=== PATIENT | female | born 1965 | race Caucasian/White ===

== ENCOUNTER 2016-05-03 15:06 | Observation (INO) | payer OTHER ==
[~2016-05-03] VITALS: Ht 167.6 cm; Wt 54.0 kg
--- NOTE | 2016-05-03 16:09 | DIAGNOSTIC IMAGING REPORT ---
PROCEDURE: CT HEAD WITHOUT CONTRAST INDICATION: HEADACHE ONE WEEK AGO ALTERED TECHNIQUE: Axial CT images were acquired through the head. Coronal and sagittal reformations were created. COMPARISON: None. FINDINGS: 2-3 small subacute infarcts are noted in the internal capsules bilaterally. On the left there is a 7-8 mm subacute infarct just under the sylvian fissure. These look like small-vessel lenticulostriate infarcts and may indicate small- vessel ischemic disease and/or vasculitis. No intracranial hemorrhage or extraaxial fluid collections. Ventricles are normal in size, shape and position. There is no mass, mass effect or midline shift. The taylor-white matter differentiation is normal. There is no edema. The calvarium is intact. The paranasal sinuses and mastoid air cells are normally aerated. The extracranial soft tissues and orbits are normal. IMPRESSION: 1. Multiple small deep white matter subacute infarcts suggesting small-vessel lenticulostriate ischemic disease and/or vasculitis. 2. Findings discussed with Dr Whitehead at 04:[address] scans at this facility use dose modulation, iterative reconstruction, and/or weight-based dosing when appropriate to reduce radiation dose to as low as reasonably achievable.
--- NOTE | 2016-05-03 16:10 | DIAGNOSTIC IMAGING REPORT ---
PROCEDURE: XR CHEST 2 VIEW INDICATION: ALTERED MENTAL STATUS WITH COUGH A FEW WEEKS AGO TECHNIQUE: PA and lateral views. COMPARISON: None. FINDINGS: Lungs are clear. Heart and mediastinum are normal. Thorax is normal. Elevated left hemidiaphragm. IMPRESSION: 1. Negative chest.
--- NOTE | 2016-05-03 17:51 | ED ORDER SUMMARY ---
..... Patient: JAMARI OVIEDO OrderSheet [facility] VisitID: [id number] [place] [address] 50y, F Registration Date/Time: 05/03/2016 ORDER SHEET Weight: 54.4 kg (stated) Allergies: No Known Drug Allergy GENERAL ORDERS: Chest 2V Urgent (15:33 05/03/2016 Ori Raymond) (Ack 15:41 KLAUSoerner) (15:45 EHassan R.N.) CT Head wo Cont Urgent (15:36 05/03/2016 Ori Raymond) (Ack 15:41 KLAUSoegosianer) (15:45 EHassan R.N.) CBC w Diff Urgent (15:36 05/03/2016 Ori Raymond) (Ack 15:41 KLAUSoeyemi) (15:45 EHassan R.N.) CMP Urgent (15:36 05/03/2016 Ori Raymond) (Ack 15:41 KLAUSoerner) (15:45 EHassan R.N.) UA-Culture if indicated Urgent (15:36 05/03/2016 Ori Raymond) (Ack 15:41 KLAUSoerner) (15:45 EHassan R.N.) Urine Drug Screen Urgent (15:36 05/03/2016 Ori aRymond) (Ack 15:41 KLAUSoerner) (15:45 EHassamitul R.N.) TSH Urgent (15:36 05/03/2016 Ori Raymond) (Ack 15:41 KLAUSoerner) (15:45 EHassan R.N.) Ethyl Alcohol Urgent (15:36 05/03/2016 Ori Raymond) (Ack 15:41 Shalini) (15:45 EHassamitul R.N.) Pulse oximeter (15:36 05/03/2016 Ori Raymond) (Ack 15:41 Flaquitarner) (15:45 EHassan R.N.) MEDICATION ORDERS: IV FLUIDS: IV NS : initial bolus 1000 mL (1000 mL/hr), then none - for X1 (NOW) (15:34 05/03/2016Princess Rehman Dr.) (15:55 Willian Hurley) ORDER SHEET NOTES: [Electronically signed by Ruby Gold R.N. (19:53 05/03/2016)] [Electronically signed by Ramses Whitehead Dr. (10:20 05/04/2016)] [Electronically locked/signed by Ruby Gold R.N. (19:53 05/03/2016)]
--- NOTE | 2016-05-03 17:51 | ED CLINICAL REPORT ---
Clinical Report - Physicians/Mid Levels [facility] [address] [place] [address] 05/03/2016 15:11 Patient: JAMARI OVIEDO Time Seen: 1505. Arrived- By private vehicle. Historian- patient. HISTORY OF PRESENT ILLNESS Chief Complaint: CHANGED MENTAL STATUS. This started past 3 days and is still present (staying the same). It was abrupt in onset and has been constant but is not gone now. Patient was last known well (three days ago). The patient has "felt strange". (difficulty with word finding). No alcohol recently. No weakness, numbness or recent fall. No difficulty walking. Usually is alert and oriented X3 and usually has normal mobility. (hx of alcoholism. has been sober since November 2015). Similar symptoms previously: Once (possibly about 15 years ago. she describes being diagnosed with a "stroke"). Recent medical care: Not recently seen/assessed. REVIEW OF SYSTEMS No fever, chest pain, difficulty breathing, blurred vision or sore throat. All systems otherwise negative, except as recorded above. PAST HISTORY See nurses notes. Medications: Amphetamine Salt Combo (30mg) Oral. Ibuprofen Oral 800 mg, daily. ValACYclovir HCl Oral (Tablet 500 mg) 1 tablet. BusPIRone HCl Oral (Tablet 10 mg) 1 tablet, daily. Lisinopril Oral (Tablet 10 mg) 1 tablet, daily. ROPINIRole HCl Oral (Tablet 1 mg) 1 tablet, twice a day. ClonazePAM Oral (Tablet 0.5 mg) 1 tablet, 2x a day. Tramadol HCL Oral (Tablet 50 mg) 1 tablet, daily. SOCIAL HISTORY Never smoker. Alcohol use. Patient is a recovering alcoholic. No drug use. No recent travel. Is a local resident. ADDITIONAL NOTES The nursing notes have been reviewed. PHYSICAL EXAM Vital Signs: 05/03/2016 15:18 BP: 115/74. HR: 88. RR: 15. O2 saturation: 100%. Temp: 98.4 F. Pain level now: 0/10. Blood pressure normal. Oxygen saturation normal. Appearance: Alert. No acute distress. Head: Head atraumatic. Eyes: Pupils equal, round and reactive to light. ENT: Normal ENT inspection. Airway intact. Moist mucous membranes. Pharynx normal. Neck: Normal inspection. Neck supple. CVS: Normal heart rate and rhythm. Heart sounds normal. Pulses normal. Respiratory: No respiratory distress. Breath sounds normal. Abdomen: Soft and nontender. No organomegaly. Back: Normal inspection. Skin: Skin warm and dry. Normal skin color. No rash. Normal skin turgor. Extremities: No calf tenderness. No lower extremity edema. (hand with stigmata of RA with ulnar deviation of fingers). Neuro: Alert. Oriented X 3. Mood/affect normal. Speech normal. Cranial nerves normal (as tested). No cerebellar findings. No motor deficit. No sensory deficit. Normal gait. LABS, X-RAYS, AND EKG Chest X-ray: (PROCEDURE: XR CHEST 2 VIEW INDICATION: ALTERED MENTAL STATUS WITH COUGH A FEW WEEKS AGO TECHNIQUE: PA and lateral views. COMPARISON: None. FINDINGS: Lungs are clear. Heart and mediastinum are normal. Thorax is normal. Elevated left hemidiaphragm. IMPRESSION: 1. Negative chest.). Views: PA. The X-rays were independently viewed by me and interpreted by the radiologist. The X-rays were discussed with the radiologist (via pacs). CT Head: (PROCEDURE: CT HEAD WITHOUT CONTRAST INDICATION: HEADACHE ONE WEEK AGO ALTERED TECHNIQUE: Axial CT images were acquired through the head. Coronal and sagittal reformations were created. COMPARISON: None. FINDINGS: 2-3 small subacute infarcts are noted in the internal capsules bilaterally. On the left there is a 7-8 mm subacute infarct just under the sylvian fissure. These look like small-vessel lenticulostriate infarcts and may indicate small-vessel ischemic disease and/or vasculitis. No intracranial hemorrhage or extraaxial fluid collections. Ventricles are normal in size, shape and position. There is no mass, mass effect or midline shift. The taylor-white matter differentiation is normal. There is no edema. The calvarium is intact. The paranasal sinuses and mastoid air cells are normally aerated. The extracranial soft tissues and orbits are normal. IMPRESSION: 1. Multiple small deep white matter subacute infarcts suggesting small-vessel lenticulostriate ischemic disease and/or vasculitis.). The study was independently viewed by me and interpreted by the radiologist. The study was discussed with the radiologist (via phone and pacs). Laboratory Tests: UA-Culture if indicated: (DEANNA: 05/03/2016 15:30) ( MsgRcvd 05/03/2016 16:15) Final results Test Result Flag Units (Reference) URINE COLOR YELLOW URINE APPEARANCE CLEAR URINE GLUCOSE NEGATIVE (NEGATIVE) URINE BILIRUBIN NEGATIVE (NEGATIVE) URINE KETONE NEGATIVE (NEGATIVE) URINE SPECIFIC GRAVITY 1.025 (1.010-1.030) URINE PH 6.0 (5.0-8.0) URINE PROTEIN NEGATIVE (NEGATIVE) URINE UROBILINOGEN 0.2 EU/dL (0.2-1.0) URINE NITRITE NEGATIVE (NEGATIVE) URINE BLOOD NEGATIVE (NEGATIVE) URINE LEUK ESTERASE NEGATIVE (NEGATIVE) URINE RBC NONE SEEN rbc/hpf (0-1) URINE WBC 0-1 wbc/hpf (0-1) URINE EPITHELIAL CELLS 3-5 EPI/hpf (0-5) URINE BACTERIA TRACE (<1+) (NONE SEEN) URINE COMMENT CULT NOT INDICATED 1+ YEASTURINE CULTURES ARE SET-UP BASED ON THE FOLLOWING CRITERIA:POSITIVE NITRITEPOSITIVE LEUKOCYTE ESTERASEGREATER THAN 10 WHITE BLOOD CELLSMODERATE (2+) OR GREATER BACTERIA CBC w Diff: (DEANNA: 05/03/2016 15:30) ( MsgRcvd 05/03/2016 15:53) Final results Test Result Flag Units (Reference) WHITE BLOOD COUNT 4.7 K/uL (4.5-11.5) RED BLOOD COUNT 3.90 L M/uL (4.00-5.20) HEMOGLOBIN 12.8 gm/dL (12.0-16.0) HEMATOCRIT 37.9 % (36.0-46.0) MEAN CELL VOLUME 97 fL (80-100) MEAN CORPUSCULAR HGB 33 pg (26-34) MEAN CORPUSCULAR HGB CONC 34 g/dL (31-37) RED CELL DISTRIBUTION WIDTH 13.1 % (11.6-14.8) PLATELET COUNT 308 K/uL (150-400) NEUTROPHIL % 61.2 % (50-75) LYMPH % 24.1 L % (25-40) MONO % 12.2 % (3-14) EOSINOPHIL % 1.2 % (0-4) BASOPHIL % 1.3 % (0-2) Urine Drug Screen: (DEANNA: 05/03/2016 15:30) ( MsgRcvd 05/03/2016 16:08) Final results Test Result Flag Units (Reference) AMPHETAMINE/METHAMPHETAMINE POSITIVE H (NEGATIVE) BARBITURATE NEGATIVE (NEGATIVE) BENZODIAZEPINE NEGATIVE (NEGATIVE) CANNABINOID POSITIVE H (NEGATIVE) COCAINE NEGATIVE (NEGATIVE) ECSTASY NEGATIVE (NEGATIVE) METHADONE NEGATIVE (NEGATIVE) OPIATE NEGATIVE (NEGATIVE) The urine drug screen is a qualitative screening test fordrug overdose and abuse. All screen results should beconsidered as presumptive.Drugs screened for are as follows:BenzodiazepinesCocaineAmphetamines/MetamphetaminesTHC (Tetrahydrocannabinol)OpiatesBarbituratesEcstasyMethadonePositive results are unconfirmed. For confirmation, notifythe lab for the specimen to be sent to the reference lab.All confirmations must be performed by a differentmethodology.The ingestion of natural herbal and plant productscontaining Ephedra/Ephedra metabolites can produce in urineone or more substances capable of cross reacting withamphetamine/methamphetamine immunoassays. These testsprovide a preliminary result only. A more specificalternative chemical method must be used to obtain aconfirmed analytical result. CMP: (DEANNA: 05/03/2016 15:30) ( MsgRcvd 05/03/2016 16:18) Final results Test Result Flag Units (Reference) GLUCOSE 97 mg/dL (70-110) BUN 31 H mg/dL (7-18) CREATININE 0.8 mg/dL (0.6-1.3) Estimated GFR >60 mL/min Estimated GFR- >60 mL/min Note: Persistent reduction over 3 months in eGFR<60 mL/min/1.73 m2 defines CKD. Patients with eGFR values>=60 mL/min/1.73 m2 may also have CKD if evidence ofpersistent proteinuria. Additional information may be foundat www.kidney.org. SODIUM 141 mmol/L (136-145) POTASSIUM 4.2 mmol/L (3.5-5.1) CHLORIDE 104 mmol/L (98-107) CARBON DIOXIDE 29 mmol/L (21-32) CALCIUM 8.5 mg/dL (8.5-10.1) TOTAL PROTEIN 6.5 g/dL (6.4-8.2) ALBUMIN 3.5 g/dL (3.3-5.0) BILIRUBIN, TOTAL 0.4 mg/dL (0.0-1.0) ALKALINE PHOSPHATASE 67 U/L (46-116) AST (SGOT) 15 U/L (15-37) ALT (SGPT) 24 U/L (12-78) ETHYL ALCOHOL <3 L mg/dL (3-10) THYROID STIMULATING HORMONE 0.646 uIU/mL (0.34-3.74) . PROGRESS AND PROCEDURES Course of Care: The patient is a pleasant 50-year-old female with past medical history significant for substance abuse presented for evaluation of altered mental status. The patient does not have any focal signs of stroke on examination however does have difficulty with memory. Patient was having a headache last week, at this time differential diagnosis includes CVA frompotential a small subarachnoid hemorrhage versus stroke as well as metabolic abnormality includingproblems with sodiumfor hypoglycemia. Patient is agreeable to the treatment plan. Another consideration would be infectious etiology. Patient does not have any signs and symptoms ofother more sinister type of etiology for her symptoms. Chest x-ray including laboratory studies and urinalysis as well as head CT scan have been ordered. Patient is agreeable to the treatment and plan. Patient's workup was remarkable for abnormalities noted on patient's CT scan of the head. A urine drug screen was ordered for possible recreational drug useexacerbating the patient's symptoms. [facility] that [facility] CT scan back in [facility]. We are currently awaiting these films for comparison for today's findings. We have contacted [facility] and there was some confusion with releasing of the patient'srecords. According to one of the staff members. Contacted, they were not able to provide us thepatient's imaging resultsbecause of the potential crime/assault issue. Did not feel that this was appropriate as the patient's medicalcondition was dependent on comparison of these films. Explained to person thatthis was not a legality issue and more of a medical decision makingproblem. Had to speak with the firearms assembly supervisor and charge nurse who eventually clarified the issue. We're eventually able to track down the patient's imaging results. The imaging results the patient states were supposedly done in 2016 are not done because of insurance issues as we later find out however patient did have a CT scan from the year prior. Findings were noted compared to the read back in 2014. Because of the patient's new findings, the patient will be admitted to the hospital. Urine drug changes noted to be positive for amphetamines however patient is on attention deficit disorder medications. This is likelythe reason for the positivedrug screen. Chest x-ray is clear. No signs of urinary tract infection. Alleged lids are otherwise unremarkable. Because of the patient's new findings, patient will need to be admitted to the hospital for further risk stratifying for her acute cerebrovascular events. Patient is agreeable to treatment plan. Discussed with patient workup, diagnosis, and plan of care. All questions answered. Was able to consult with internal medicine who will accept the patient. No further recommendations made. Patient transferred. prior to patient's depression in the emergency department she is noted to have no change in her mental status or neurological examination. Patient continues to be nontoxic and in no acute distress. Patient does not need alcides admitted to the intensive care unit. No infectious etiology noted for her symptoms today. Critical care performed (65 minutes). Time is exclusive of separately billable procedures. Time includes: direct patient care, patient reassessment, coordination of patient care, review of patient's medical records, medical consultation and documentation of patient care. (Electronically signed by Ramses Whitehead Dr. 05/04/2016 10:20)
--- NOTE | 2016-05-03 17:51 | ED NURSING NOTES ---
Clinical Report - Nurses [place] [address] [place] [address] 05/03/2016 15:11 Patient: JAMARI OVIEDO TRIAGE Triage time 1519 PM. Acuity: LEVEL 3. Chief Complaint: ALTERED MENTAL STATUS and CONFUSED. Alert. No acute distress. MAURA COMA SCORE: Maura Coma Scale: 15- eyes open spontaneously (4); best verbal response- oriented x 4 (5); best motor response- obeys commands (6). --15:44 Ruby Gold R.N. 15:18 05/03/16. BP: 115/74. HR: 88. RR: 15. O2 saturation: 100% on room air. Temp: 98.4 F (oral). Pain level now: 0/10. --15:44 Ruby Gold R.N. late entry - 15:30 PM. --19:08 Ruby Gold R.N. Weight: 54.4 kg stated. Height/Length: 66 inches Per Patient. BMI: 19.4. --15:17 Ruby Gold R.N. Medications Tramadol HCL Oral (Tablet 50 mg) 1 tablet, daily. --15:36 Ruby Gold R.N. ClonazePAM Oral (Tablet 0.5 mg) 1 tablet, 2x a day. --15:36 Ruby Gold R.N. ROPINIRole HCl Oral (Tablet 1 mg) 1 tablet, twice a day. --15:37 Ruby Gold R.N. Lisinopril Oral (Tablet 10 mg) 1 tablet, daily. --15:37 Ruby Gold R.N. BusPIRone HCl Oral (Tablet 10 mg) 1 tablet, daily. --15:38 Ruby Gold R.N. ValACYclovir HCl Oral (Tablet 500 mg) 1 tablet. --15:38 Ruby Gold R.N. Ibuprofen Oral 800 mg, daily. --15:38 Gold, Ruby, R.N. Amphetamine Salt Combo (30mg) Oral. --15:39 Ruby Gold R.N. Medication/allergy information source: the patient. --15:44 Ruby Gold R.N. Allergies No Known Drug Allergy. --19:53 Ruby Gold R.N. History Arrived by private vehicle. Historian: patient. Accompanied by friend. Primary physician (Dr. Rockwell). ( neighbor and pt states that the past 3 days " I could not remember things, or places or people" Pt states that has not feeling right since November 25 when she OD from alcohol, (went to [facility]). Pt states having H/A, periods of confusion, "black out like". Pt is a poor historian due to "memory loss"). This started 3 days. Patient was last known well (3 days ago as per neighbor). She has had a headache, weakness and trouble walking. No fever, numbness or incontinence. Treatment MANAGER TRACK: None. PAST MEDICAL HX: Immunizations: up-to-date. SOCIAL HX: Former smoker, end date 1996. Heavy alcohol use. Patient is a recovering alcoholic. (5 months). 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 SELF HARM ASSESSMENT: A self harm assessment was performed. The patient answered "no" to the question "Do you have thoughts of harming or killing yourself?" and "Have you recently had thoughts about harming or killing others?". FALL RISK ASSESSMENT: Fall risk assessment completed. No fall risk identified. NUTRITIONAL RISK ASSESSMENT: The nutritional risk assessment revealed no deficiencies. FUNCTIONAL ASSESSMENT: Functional assessment: no impairments noted. LEARNING NEEDS ASSESSMENT: The learning needs assessment revealed no barriers. SKIN INTEGRITY ASSESSMENT: Skin integrity risk assessment completed. No skin integrity risk identified. --15:44 Ruby Gold R.N. SOCIAL HX: History of weekly drug use: marijuana. Recently used drugs yesterday. --19:08 Ruby Gold R.N. PROBLEMS: Anxiety Reaction. Alcoholism. --15:22 Ruby Gold R.N. ADHD - Attention Deficit Hyperactivity Disorder. Hypertension. Rheumatoid Arthritis. --15:40 Ruby Gold R.N. CVA - Cerebrovascular Accident. --19:53 Ruby Gold R.N. ADDITIONAL SURGERIES: Carpal Tunnel Surgery. . --15:40 Ruby Gold R.N. Interventions ID band on patient. --15:44 Ruby Gold R.N. PHYSICAL ASSESSMENT Ambulatory to room. GENERAL / NEURO / PSYCH: Alert. Appears in no acute distress. The patient is disoriented to time. Speech within normal limits. Patient appears neat and clean but does not appear unkempt or smell of alcohol. Pupillary exam: Right pupil 2mm, round and briskly reactive to light directly. Left pupil: 2mm, round and briskly reactive to light directly. RESPIRATORY: Respirations not labored. Breath sounds within normal limits. CVS: Capillary refill less than 2 seconds. GI / : Abdomen soft and nontender. SKIN: Skin is warm and dry. Normal skin turgor. --15:45 Ruby Gold R.N. NURSING PROGRESS NOTES The initial plan of care for this patient has been created This plan of care was discussed with the patient. Patient ID band checked for patient name, birthdate and medical record number: patient confirmed. Blood samples drawn from the left forearm peripheral IV site by nurse per protocol ; labeled in presence of the patient and sent to lab: rainbow set. Patient gowned. Warming measures: blanket applied. Reassurance given. Two patient identifiers checked. Call light placed in reach. Side rails up x 1. Bed placed in lowest position. Brakes of bed on. --15:46 Ruby Gold R.N. 15:36 05/03/2016 Site #1 started via IV in the left forearm with an 20g angiocath; one attempt. Blood drawn: rainbow set. Labeled in the presence of the patient and sent to the lab. Saline lock flushed. --15:46 Ruby Gold R.N. Patient returned from CT by stretcher. (1554 PM). --15:54 Ruby Gold R.N. 15:55 05/03/2016 Started bag #1 1000 mL IV Fluids IV NS (Saline); at 1000 mL/hr over 1 hour(s) via site #1 via IV pump. Allergies verified and confirmed 5 rights. Completed per protocol. --15:55 Ruby Gold R.N. 15:55 05/03/16. BP: 102/68. HR: 75. RR: 15. O2 saturation: 100% on room air. Pain level now: 810. Additional comments: RA pain. --15:56 Ruby Gold R.N. Reassurance given. GENERAL / NEURO / PSYCH: The patient reports anxiety. The patient is disoriented. Decreased awareness. --15:56 Ruby Gold R.N. 16:33 05/03/16. HR: 81. RR: 20. O2 saturation: 99% on room air. --16:34 Cheri Sarabia R.N. late entry - 16:30 PM. The patient is calm. --16:52 Ruby Gold R.N. 16:30 05/03/16. BP: 112/63. HR: 81. RR: 20. O2 saturation: 99%. Pain level now: 0/10. --16:52 Ruby Gold R.N. 16:59 05/03/2016 IV Fluids IV NS Discontinued: bag #1 completed. Total amount infused: 1000 mL. IV patency established. IV site checked: no pain, redness, or swelling. IV flushed thoroughly. --16:59 Ruby Gold R.N. Pulse oximeter and NIBP monitor placed on patient. Reassurance given. Reassessment after fluids administered. She is calm and sleeping and has had no adverse reaction. Overall patient status is the same- she states feels the same. ( Fluids finished, awaiting on records from [facility], pt concern about possibly having CA, does not remember or having hx of stroke.). GENERAL / NEURO / PSYCH: Denies headache. Patient is calm and cooperative. Affect appears normal. Alert. Call light placed in reach. Side rails up x 2. Bed placed in lowest position. Brakes of bed on. --17:11 Ruby Gold R.N. 17:09 05/03/16. BP: 121/64. HR: 76. RR: 15 (regular). O2 saturation: 99% on room air. Pain level now: 8/10. Additional comments: RA related. --17:11 Ruby Gold R.N. ( H/P forms on chart.). --18:14 Evie Ponce BANDAR Tech1 late entry - 18:00 PM. Reassurance given. The patient is calm. Overall patient status is the same- she states feels the same. ( Pt aware of being admitted, Dr. Whitehead at bedside. Records obtained). GENERAL / NEURO / PSYCH: Alert. Call light placed in reach. Side rails up x 1. Bed placed in lowest position. Brakes of bed on. --18:43 Ruby Gold R.N. 18:00 05/03/16. BP: 122/92 (small adult cuff) taken on the left arm, via an automated monitor, while lying. HR: 73. RR: 12. O2 saturation: 98%. Pain level now: 09/29. --18:43 Ruby Gold R.N. ( HP forms given to pt). --18:44 Ruby Gold R.N. Reassurance given. GENERAL / NEURO / PSYCH: The patient reports headache. Patient is calm and cooperative. Alert. SKIN: Skin is warm and dry. Two patient identifiers checked. Call light placed in reach. Side rails up x 2. Patient waiting for admit bed and treatment bed / room (207). --19:21 Ruby Gold R.N. 19:15 05/03/16. BP: 114/70 (small adult cuff) taken on the left arm, via an automated monitor, while sitting. HR: 67. RR: 12. O2 saturation: 97% on room air. Temp: 98.2 F (oral). Pain level now: 09/29. Additional comments: RA pain. --19:21 Ruby Gold R.N. DISPOSITION / DISCHARGE 19:51 05/03/2016 Site #1 reassessed; patent, infusing well and no signs of infection or infiltration. Line flushed with saline. Good blood return present. Converted to saline lock. Flushed with 10 mL saline. --19:52 Ruby Gold R.N. Departure time: 1950 PM. Condition at departure: stable. Transported via stretcher by transport team. Report was given to a nurse via a phone call. Report included patient's care, treatment, medications, reviewed medication reconcilliation, and condition (including any recent changes or anticipated changes). All questions were answered. Report was acknowledged and care was transferred. (RN). Patient's personal items include: shirt, pants, skirt, undergarments, socks, shoes, glasses, jewelry, purse, wallet and cell phone; items were placed in belongings bag, given to the patient and transported with the patient. MAURA COMA SCORE: Maura Coma Scale: 15- eyes open spontaneously (4); best verbal response- oriented x 4 (5); best motor response- obeys commands (6). --19:52 Ruby Gold R.N. 19:39 05/03/16. BP: 106/66 (small adult cuff) taken on the left arm, while lying. HR: 63 (regular). RR: 12. O2 saturation: 100% on room air. Temp: 98.1 F. Pain level now: 8/10. Additional comments: RA b/l hands and toes. --19:52 Ruby Gold R.N. ( All belongings sent with pt, bookbag, glasses, wallet and clothing. Report given, pt transferred safely to room). --19:53 Ruby Gold R.N. Locked/Released at 05/03/2016 19:53 by Ruby Gold R.N.
--- NOTE | 2016-05-03 17:51 | ED ORDER SUMMARY ---
..... Patient: JAMARI OVIEDO OrderSheet [facility] VisitID: [id number] [place] [address] 50y, F Registration Date/Time: 05/03/2016 ORDER SHEET Weight: 54.4 kg (stated) Allergies: No Known Drug Allergy GENERAL ORDERS: Chest 2V Urgent (15:33 05/03/2016 Ori Raymond) (Ack 15:41 KLAUSoerner) (15:45 EHassan R.N.) CT Head wo Cont Urgent (15:36 05/03/2016 Ori Raymond) (Ack 15:41 KLAUSoegosianer) (15:45 EHassan R.N.) CBC w Diff Urgent (15:36 05/03/2016 Ori Raymond) (Ack 15:41 KLAUSoeyemi) (15:45 EHassan R.N.) CMP Urgent (15:36 05/03/2016 Ori Raymond) (Ack 15:41 KLAUSoerner) (15:45 EHassan R.N.) UA-Culture if indicated Urgent (15:36 05/03/2016 Ori Raymond) (Ack 15:41 KLAUSoerner) (15:45 EHassan R.N.) Urine Drug Screen Urgent (15:36 05/03/2016 Ori Raymond) (Ack 15:41 KLAUSoerner) (15:45 EHassamitul R.N.) TSH Urgent (15:36 05/03/2016 Ori Raymond) (Ack 15:41 KLAUSoerner) (15:45 EHassan R.N.) Ethyl Alcohol Urgent (15:36 05/03/2016 Ori Raymond) (Ack 15:41 Shalini) (15:45 EHassamitul R.N.) Pulse oximeter (15:36 05/03/2016 Ori Raymond) (Ack 15:41 Flaquitarner) (15:45 EHassan R.N.) MEDICATION ORDERS: IV FLUIDS: IV NS : initial bolus 1000 mL (1000 mL/hr), then none - for X1 (NOW) (15:34 05/03/2016Princess Rehman Dr.) (15:55 Willian Hurley) ORDER SHEET NOTES: [Electronically signed by Ruby Gold R.N. (19:53 05/03/2016)] [Electronically signed by Ramses Whitehead Dr. (10:20 05/04/2016)] [Electronically locked/signed by Ruby Gold R.N. (19:53 05/03/2016)]
--- NOTE | 2016-05-03 18:51 | History & Physical Report ---
Information Source Information Source: Self Reliability: Fair History Chief Complaint difficulty thinking History of Present Illness Patient is a 50 year old female with a pmh of rheumatoid arthritis, alcohol abuse, anxiety and hypertension that is presenting with an acute onset of memory loss. Patient had been in her usual state of health when she started to have increased somnolence and difficulty remembering certain events. Patients memory loss was not consistent with certain days nor with certain events. Patient additonally had increased sensation of livier vu whenever she traveled certain areas shes been previously. Patient did not have any neurological deficitis nor did she have any change in overall mentation. Patient upon arriving was seen to have sub acute cvas in her ct scan. Patient is otherwise stable mentating well and has no acute problems at the moment. Patient History 1. Cerebral vascular accident 2. Altered mental status Social History Patient lives with her friend on her property. She no longer works, she does not drink, however she was hospitilized with alcohol poisoning last november. Patient uses marijuana on a daily basis. Family History Family history was reviewed; no changes noted. Medications and Allergies Medications Home Medications reviewed Current Medications Sig/Sima Start time Last Medication Dose Route Stop Time Status Admin Influenza Virus 0.5 ML 0900 05/05 0900 AC Vaccine IM 05/05 1600 Atorvastatin Calcium 40 MG QPM 05/04 1800 AC PO Aspirin 162 MG DAILY 05/04 0900 AC 05/04 PO 0832 Buspirone HCl 10 MG DAILY 05/04 0900 AC 05/04 PO 0832 Lisinopril 10 MG DAILY 05/04 0900 AC 05/04 PO 0832 Acyclovir 400 MG TID 05/03 2200 AC 05/04 PO 0610 Tramadol HCl 25 MG BID 05/03 2200 AC 05/04 PO 0832 Clonazepam 0.5 MG BID 05/03 2100 AC 05/04 PO 0832 Ropinirole HCl 0.5 MG BID 05/03 2100 AC 05/04 PO 0832 Enoxaparin Sodium 40 MG QAM 05/03 2000 AC 05/04 SC 0832 Lorazepam 2 MG Q6H PRN 05/03 1915 AC IV Acetaminophen 650 MG Q6H PRN 05/03 1845 AC PO Morphine Sulfate 2 MG Q4H PRN 05/03 1845 AC IV Morphine Sulfate 4 MG Q4H PRN 05/03 1830 AC IV Ondansetron HCl 4 MG Q8H PRN 05/03 1830 AC IV Allergies Coded Allergies: No Known Drug Allergy (11/27/04) Review of Systems Constitutional Denies: Fever, Chills, Sweats, Weakness, Malaise, Other. Eyes Denies: Pain, Vision Change, Conjunctival Inflammation, Eyelid Inflammation, Redness, Other. ENT Denies: Ear Pain, Ear Discharge, Nose Pain, Nasal Discharge, Nasal Congestion, Mouth Pain, Mouth Swelling, Throat Pain, Throat Swelling, Other. Respiratory Denies: Cough, Dry, SOB w/exertion, Wheezing, Hemoptysis, Pleuritic Pain, Sputum , Other. Cardiovascular Denies: Chest Pain, Palpitations, Orthopnea, PND, Edema, Light-headedness, Other. Gastrointestinal Denies: Nausea, Vomiting, Abdominal Pain, Diarrhea, Constipation, Melena, Hematochezia, Other. Genitourinary Denies: Dysuria, Frequency, Incontinence, Hematuria, Retention, Other. Musculoskeletal Denies: Neck Pain, Shoulder Pain, Arm Pain, Back Pain, Hand Pain, Leg Pain, Foot Pain, Other. Skin Denies: Rash, Lesions, Jaundice, Bruising, Other. Neurological Confusion. Denies: Weakness, Numbness, Incoordination, Change in speech, Seizures, Other. Physical Exam Vital Signs / I&Os Vital Signs Date Time Temp Pulse Resp B/P Pulse O2 O2 Flow FiO2 Ox Delivery Rate 05/04 0924 97 05/04 0710 85/49 05/04 0701 97.9 65 18 128/89 97 Room Air 05/04 0203 97.9 58 18 111/64 99 Room Air 05/03 2340 97.5 64 20 100/64 100 Room Air 05/03 2012 97.7 62 18 101/63 99 I&O 05/03 0800 05/03 1600 05/04 0000 Intake Total 250 Output Total 200 Balance 50 General Appearance Alert, Oriented X3, No acute distress HEENT Atraumatic, PERRLA, EOMI, Moist mucous membranes Lungs Clear to auscultation, Normal air movement Cardiovascular Regular rate and rhythm, Normal S1 and S2, No murmurs, gallops, rubs Abdomen Soft, No tenderness, No guarding, No rebound, No hepatosplenomegaly Extremities No clubbing, No edema, Normal pulses, No tenderness, Strength = upper ext's, Strength = lower ext's Skin No Rashes, No Breakdown, No Significant Lesions Neurological Normal gait, Normal speech, Normal tone, Sensation intact, Reflexes 2+ and equal, Cranial nerves intact, Strength 5/5 x4 ext's, No lateralizing signs, - FPC memory and short term memory intact - patient able to recollect information that is both pertinent and trivial - patient does not have any impairments in terms of balance, proprioception, cognition, spacial reasoning, judgement or insight Psych/Mental Status Mood normal LAB Results Laboratory Tests 05/03 05/03 05/04 1530 1530 0540 Chemistry Plasma Sodium (136 - 145 mmol/L) 141 142 Plasma Potassium (3.5 - 5.1 mmol/L) 4.2 4.0 Plasma Chloride (98 - 107 mmol/L) 104 109 CO2 (Enzymatic) (21 - 32 mmol/L) 29 27 BUN (7 - 18 mg/dL) 31 24 Creatinine (0.6 - 1.3 mg/dL) 0.8 0.7 Est GFR ( Amer) (mL/min) >60 >60 Est GFR (Non-Af Amer) (mL/min) >60 >60 Glucose (70 - 110 mg/dL) 97 104 Plasma Calcium (8.5 - 10.1 mg/dL) 8.5 8.0 Plasma Magnesium (1.8 - 2.4 mg/dL) 1.8 Total Bilirubin (0.0 - 1.0 mg/dL) 0.4 0.4 AST (15 - 37 U/L) 15 13 ALT (12 - 78 U/L) 24 16 Alkaline Phosphatase (46 - 116 U/L) 67 55 Total Protein (6.4 - 8.2 g/dL) 6.5 5.2 Albumin (3.3 - 5.0 g/dL) 3.5 2.8 TSH 3rd Generation (0.34 - 3.74 uIU/mL) 0.646 Hematology WBC (4.5 - 11.5 K/uL) 4.7 3.9 RBC (4.00 - 5.20 M/uL) 3.90 3.40 Hgb (12.0 - 16.0 gm/dL) 12.8 11.2 Hct (36.0 - 46.0 %) 37.9 33.3 MCV (80 - 100 fL) 97 98 MCH (26 - 34 pg) 33 33 RDW (11.6 - 14.8 %) 13.1 13.1 Neut % (Auto) (50 - 75 %) 61.2 40.5 Lymph % (Auto) (25 - 40 %) 24.1 43.3 [place] % (Auto) (3 - 14 %) 12.2 11.5 Eos % (Auto) (0 - 4 %) 1.2 3.4 Baso % (Auto) (0 - 2 %) 1.3 1.3 Plt Count, EDTA (150 - 400 K/uL) 308 255 PUBS MCHC (31 - 37 g/dL) 34 34 Toxicology Urine Opiates Screen (NEGATIVE) NEGATIVE Urine Methadone Screen (NEGATIVE) NEGATIVE Ur Barbiturates Screen (NEGATIVE) NEGATIVE U Amphetamin/Meth Scrn (NEGATIVE) POSITIVE MDMA (Ecstasy) Screen (NEGATIVE) NEGATIVE U Benzodiazepines Scrn (NEGATIVE) NEGATIVE Urine Cocaine Screen (NEGATIVE) NEGATIVE U Cannabinoids Screen (NEGATIVE) POSITIVE Plasma/Serum Ethyl Alc (3 - 10 mg/dL) <3 Lead Pending Urines Urine Color YELLOW Urine Appearance CLEAR Urine pH (5.0 - 8.0) 6.0 Ur Specific [place] (1.010 - 1.030) 1.025 Urine Protein (NEGATIVE) NEGATIVE Urine Ketones (NEGATIVE) NEGATIVE Urine Blood (NEGATIVE) NEGATIVE Urine Nitrite (NEGATIVE) NEGATIVE Urine Bilirubin (NEGATIVE) NEGATIVE Urine Urobilinogen (0.2 - 1.0 EU/dL) 0.2 Ur Leukocyte Esterase (NEGATIVE) NEGATIVE Urine RBC (0 - 1 rbc/hpf) NONE SEEN Urine WBC (0 - 1 wbc/hpf) 0-1 Ur Epithelial Cells (0 - 5 EPI/hpf) 3-5 Urine Bacteria (NONE SEEN) TRACE (<1+) Urine Glucose (NEGATIVE) NEGATIVE Urine Comment CULT NOT INDICATED 05/04 05/04 0540 0540 Chemistry Iron (35 - 150 ug/dL) 100 TIBC (260 - 445 ug/dL) 252 Iron Saturation (15 - 50 %) 40 Vitamin B12 (211 - 946 pg/mL) 835 Folate (>3.0 ng/mL) 17.6 TSH 3rd Generation (0.34 - 3.74 uIU/mL) 0.672 Assessment and Plan Problem List 1. Cerebral vascular accident Plan - pt has evidence of sub acute cvas in various areas - no acute changes noted - will start aspirin and statin - will monitor for any decompensation 2. Altered mental status Plan - Pts altered mental status is selective memory loss that is not tied to specific events or is even consistent for that matter. - additionally patient is self defeating and gives up before fully attempting to recollect events - upon exam patient has no evidence of cognitive or neurological deficits - will order dementia work up for the am
[2016-05-03 20:12] VITALS: BP 101/63
[2016-05-03] MEDS ORDERED: ADDERALL30 MG PO (23:22)
[2016-05-03] MEDS ORDERED: TRAMADOL HCL50 MG PO (23:25)
[2016-05-03] MEDS ORDERED: ROPINIROLE HC0.25 MG PO (23:26)
[2016-05-03] MEDS ORDERED: KLONOPIN0.5 M1 PO (23:27)
[2016-05-03] MEDS ORDERED: IBUPROFEN800 MG PO (23:28)
[2016-05-03] MEDS ORDERED: LISINOPRIL10 MG PO (23:29)
[2016-05-03] MEDS ORDERED: BUSPIRONE HCL10 MG PO (23:29)
[2016-05-03] MEDS ORDERED: VALACYCLOVIR H500 MG PO (23:29)
[2016-05-03] MEDS ORDERED: PAROXETINE HCL30 MG PO (23:30)
[2016-05-03 23:40] VITALS: BP 100/64
[2016-05-04 02:03] VITALS: BP 111/64
[2016-05-04 07:01] VITALS: BP 128/89
[2016-05-04 07:10] VITALS: BP 85/49
[2016-05-04 07:15] VITALS: BP 85/50
--- NOTE | 2016-05-04 10:20 | ED MED RECONCILIATION SUMMARY ---
Patient: JAMARI OVIEDO Medication Reconciliation Report [facility] VisitID: [id number] [address] [place] [address] 50y, F Registration Date/Time: 05/03/2016 Weight: 54.4 kg Height/Length: 66 in. BMI: 19.4 ALLERGIES: No Known Drug Allergy The patient's Home Medications are listed below: THE FOLLOWING MEDICATIONS NEED TO BE RECONCILED: Amphetamine Salt Combo (30mg) Oral BusPIRone HCl Oral (10 mg) 1 tablet, daily ClonazePAM Oral (0.5 mg) 1 tablet, 2x a day Ibuprofen Oral 800 mg, daily Lisinopril Oral (10 mg) 1 tablet, daily ROPINIRole HCl Oral (1 mg) 1 tablet, twice a day Tramadol HCL Oral (50 mg) 1 tablet, daily ValACYclovir HCl Oral (500 mg) 1 tablet The source(s) of the original Home Medication information: patient The following Medications were given to the patient in the Emergency Department: IV NS IV Fluids bolus 0, then 1000 mL/hr, administered: 05/03/2016 3:55:00 PM The following Medications were prescribed to the patient: None.
--- NOTE | 2016-05-04 10:20 | ED MAR SUMMARY ---
..... Medication Administration Record [facility] [address] [place] [address] Patient: JAMARI OVIEDO Visit ID: [id number] 50y, F Weight: 54.4 kg Height/Length: 66 in BMI: 19.4 ALLERGIES: No Known Drug Allergy Start 15:55 05/03/2016 Ruby Gold RMagaliNMagali, Stop 16:59 05/03/2016 Ruby Gold R.N. Medication Administered: IV NS (SALINE), Dose: IV Fluids over 1 hour(s), Rate: 1000 mL/hr, Dispensed: 1000 mL bag, Site: #1 left forearm. Medication Ordered: IV NS : initial bolus 1000 mL (1000 mL/hr), then none - for X1 (NOW).
--- NOTE | 2016-05-04 10:20 | ED MED RECONCILIATION SUMMARY ---
Patient: JAMARI OVIEDO Medication Reconciliation Report [facility] VisitID: [id number] [address] [place] [address] 50y, F Registration Date/Time: 05/03/2016 Weight: 54.4 kg Height/Length: 66 in. BMI: 19.4 ALLERGIES: No Known Drug Allergy The patient's Home Medications are listed below: THE FOLLOWING MEDICATIONS NEED TO BE RECONCILED: Amphetamine Salt Combo (30mg) Oral BusPIRone HCl Oral (10 mg) 1 tablet, daily ClonazePAM Oral (0.5 mg) 1 tablet, 2x a day Ibuprofen Oral 800 mg, daily Lisinopril Oral (10 mg) 1 tablet, daily ROPINIRole HCl Oral (1 mg) 1 tablet, twice a day Tramadol HCL Oral (50 mg) 1 tablet, daily ValACYclovir HCl Oral (500 mg) 1 tablet The source(s) of the original Home Medication information: patient The following Medications were given to the patient in the Emergency Department: IV NS IV Fluids bolus 0, then 1000 mL/hr, administered: 05/03/2016 3:55:00 PM The following Medications were prescribed to the patient: None.
--- NOTE | 2016-05-04 10:20 | ED MAR SUMMARY ---
..... Medication Administration Record [facility] [address] [place] [address] Patient: JAMARI OVIEDO Visit ID: [id number] 50y, F Weight: 54.4 kg Height/Length: 66 in BMI: 19.4 ALLERGIES: No Known Drug Allergy Start 15:55 05/03/2016 Ruby Gold RMagaliNMagali, Stop 16:59 05/03/2016 Ruby Gold R.N. Medication Administered: IV NS (SALINE), Dose: IV Fluids over 1 hour(s), Rate: 1000 mL/hr, Dispensed: 1000 mL bag, Site: #1 left forearm. Medication Ordered: IV NS : initial bolus 1000 mL (1000 mL/hr), then none - for X1 (NOW).
--- NOTE | 2016-05-04 10:43 | Provider's Discharge Care Plan ---
Problem, Goal, Plan Problem List 1. Cerebral vascular accident Instructions: - stable no evidence of acute changes 2. Altered mental status Instructions: - lab work was unremarkable, no evidence of any sort of imbalance
[2016-05-04] MEDS ORDERED: ASPIRIN ADULT L81 MG PO (10:44)
[2016-05-04] MEDS ORDERED: ATORVASTATIN CA40 MG PO (10:44)
--- NOTE | 2016-05-04 12:15 | Discharge Summary ---
Discharge Summary Report Admit Date 05/03/16 Discharge Date 05/04/16 Admission Diagnosis memory loss Discharge Diagnosis memory impairment and evidence of old strokes Brief History Patient is a 50 year old female with a pmh of rheumatoid arthritis, alcohol abuse, anxiety and hypertension that is presenting with an acute onset of memory loss. Patient had been in her usual state of health when she started to have increased somnolence and difficulty remembering certain events. Patients memory loss was not consistent with certain days nor with certain events. Patient additonally had increased sensation of livier vu whenever she traveled certain areas shes been previously. Patient did not have any neurological deficitis nor did she have any change in overall mentation. Patient upon arriving was seen to have sub acute cvas in her ct scan. Patient is otherwise stable mentating well and has no acute problems at the moment. Hospital Course Patient was seen and examined. Patients memory impairment was not consistent with any normal loss of cognition. Patient had basic dementia labs drawn which did not reveal any acute or chronc process. Patient on exam did not have any spacial reasoning, insight, verbal reasoning, rational, arithmetic, retirement memory, short term memory impairments. Given the presntation it is very likely that patients frequent marijuana abuse may be contributing to the difficulty remembering. As of right now, patient will be discharged and she will need to follow up with her primary care doctor if her symptoms persist. General Appearance Alert, Oriented X3, No acute distress HEENT PERRLA, EOMI, Mucous membran moist/pink Lungs Normal air movement Cardiovascular Normal S1, Normal S2, No murmurs, Gallops, Rubs Abdomen Soft, No tenderness Skin No Breakdown ( ), No Significant Lesions Discharge Instructions/Meds - take medications as prescribed - avoid daily marijuana use
== END 2016-05-04 16:15 | disposition home or self-care (01) ==
LOC: ED SRH 15:06 → ACUTE2 SRH 18:23 → TRANS SRH 18:23 → ACUTE2 SRH 19:53
PROVIDERS: ADMIT Internal Medicine
DX: R41.3 Other amnesia (principal); Z86.73 Personal history of transient ischemic attack (TIA), and cerebral infarction without residual deficits; I10 Essential (primary) hypertension; F10.10 Alcohol abuse, uncomplicated; F12.10 Cannabis abuse, uncomplicated; M06.9 Rheumatoid arthritis, unspecified; F41.9 Anxiety disorder, unspecified
CPT/HCPCS: 29230; 29251; 90004; 90074; 90100; 91504; 91505; 92010; 92668; 92670; 92720; 92760; 92761; 92762; 92763; 92764; 92765; 92766; 92767; 93140; 95059; 97510